=== PATIENT | male | born 1945 | race Caucasian/White ===

== ENCOUNTER → 2022-06-26 | Outpatient (CLI) | payer MEDICARE | END | disposition home or self-care (01) | LOC: US 15:00 | PROVIDERS: ATTEND Orthopaedic Surgery | DX: M25.562 Pain in left knee (principal); Z79.82 Long term (current) use of aspirin; R60.9 Edema, unspecified; M79.89 Other specified soft tissue disorders ==

== ENCOUNTER 2022-07-10 07:53 | Emergency (ER) | payer MEDICARE ==
[2022-07-10 08:47] LABS: BASO # 0.1 10*3/uL (0.0-0.1); BASO % 0.6 % (0.0-1.0); EOS # 0.9 10*3/uL (0.0-0.4); EOS % 8.9 % (1.0-4.0); HEMATOCRIT 36.8 % (42.0-52.0); LYMPH # 1.4 10*3/uL (1.3-4.4); LYMPH % 15.1 % (27.0-41.0); MEAN CELL VOLUME 100.5 fl (80.0-94.0); MEAN CORPUSCULAR HGB 33.3 pg (27.0-31.0); MEAN CORPUSCULAR HGB CONC 33.2 g/dl (33.0-37.0); MEAN PLATELET VOLUME 8.7 fl (9.6-12.3); MONO # 0.7 10*3/uL (0.1-1.0); MONO % 7.7 % (3.0-9.0); NEUT # 6.4 10*3/uL (2.3-7.9); NEUT % 67.4 % (47.0-73.0); PLATELET COUNT AUTOMATED 393 10*3/uL (130-400); RED BLOOD COUNT 3.66 10*6/uL (4.50-5.90); RED CELL DISTRI WIDTH 13.4 % (0-14.5); WHITE BLOOD COUNT 9.6 10*3/uL (4.8-10.8)
[2022-07-10 08:58] LABS: ACT PARTIAL THROMBO TIME 26.2 SECONDS (20.0-32.1)
[2022-07-10 09:04] LABS: ALKALINE PHOSPHATASE 107 U/L (46-116); BUN 11 mg/dl (9-23); CHLORIDE 102 mmol/L (98-107); POTASSIUM 3.6 mmol/L (3.4-5.1); SGPT/ALT 28 U/L (10-49); TOTAL PROTEIN 6.1 gm/dL (6.0-8.0)
== END 2022-07-10 09:48 | disposition home or self-care (01) ==
LOC: ED 07:53
PROVIDERS: Family Medicine
DX: R04.0 Epistaxis (principal); I10 Essential (primary) hypertension

== ENCOUNTER → 2022-07-29 | Outpatient (CLI) | payer MEDICARE | END | disposition home or self-care (01) | LOC: US 13:22 | PROVIDERS: ATTEND Orthopaedic Surgery | DX: Z47.1 Aftercare following joint replacement surgery (principal); M79.89 Other specified soft tissue disorders ==

== ENCOUNTER → 2023-01-31 | Outpatient (CLI) | payer MEDICARE | END | disposition home or self-care (01) | LOC: US 13:53 | PROVIDERS: ATTEND Orthopaedic Surgery | DX: Z47.1 Aftercare following joint replacement surgery (principal); M17.0 Bilateral primary osteoarthritis of knee; R60.9 Edema, unspecified; M79.661 Pain in right lower leg ==